=== PATIENT | male | born 1985 | race Caucasian/White ===

== ENCOUNTER 2017-01-04 09:40 | Emergency (ER) | payer SELFPAY ==
[~2017-01-04] VITALS: Ht 177.8 cm; Wt 66.6 kg
[~2017-01-04 09:40] MED LIST: INSU100C SQ-INSULIN; INSU100I28 SQ-INSULIN; INSU100V8 SQ
[2017-01-04 09:58] VITALS: BP 109/76
[2017-01-04] MEDS ORDERED: PROPARACAINE OPHTH 0.5%, 15ML ONE (10:12)
[2017-01-04] MEDS ORDERED: FLUORESCEIN OPHTHALMIC 1 MG STRIP ONE (10:12)
== END 2017-01-04 11:31 | disposition home or self-care (01) ==
LOC: ED 10:57
DX: S05.01XA Injury of conjunctiva and corneal abrasion without foreign body, right eye, initial encounter (principal); H10.231 Serous conjunctivitis, except viral, right eye; E11.9 Type 2 diabetes mellitus without complications; X58.XXXA Exposure to other specified factors, initial encounter; Y93.89 Activity, other specified; Y99.8 Other external cause status; Y92.89 Other specified places as the place of occurrence of the external cause
CPT/HCPCS: 99283